=== PATIENT | female | born 1975 | race Caucasian/White ===

== ENCOUNTER 2017-12-12 07:55 | Inpatient (IN) | payer MEDICARE, MEDICAID ==
[~2017-12-12] VITALS: Ht 152.4 cm; Wt 55.6 kg
[2017-12-12] MEDS ORDERED: PERCT10 PO (07:59)
[2017-12-12 08:29] LABS: BASOPHILS % (AUTO) 0.9 % (0.0-2.0); EOSINOPHILS % (AUTO) 2.3 % (1.0-6.0); HEMATOCRIT 38.5 % (36-46); HEMOGLOBIN 13.2 g/dL (12.0-16.0); LYMPHOCYTES # (AUTO) 2.9 K/uL (1.0-4.8); LYMPHOCYTES % (AUTO) 33.6 % (22.0-44.0); MEAN CORPUSCULAR HEMOGLOBIN 32.7 pg (26.0-34.0); MEAN CORPUSCULAR HGB CONC 34.4 G/dL (31.0-37.0); MEAN CORPUSCULAR VOLUME 95 fL (80-100); MONOCYTES # (AUTO) 0.7 K/uL (0.1-1.0); MONOCYTES % (AUTO) 8.5 % (2.0-9.0); NEUTROPHILS # (AUTO) 4.8 K/uL (1.8-7.7); NEUTROPHILS % (AUTO) 54.7 % (40.0-70.0); PLATELET COUNT (AUTO) 366 K/uL (150-450); RED BLOOD CELL COUNT(AUTO) 4.05 MIL/uL (4.00-5.20); RED CELL DISTRIBUTION WIDTH 13.7 % (11.5-14.5)
[2017-12-12 08:46] LABS: ALANINE AMINOTRANSFERASE 30 U/L (12-78); ALBUMIN 3.8 g/dL (3.4-5.0); ALKALINE PHOSPHATASE 64 U/L (46-116); ANION GAP 10 mmol/L (8-16); ASPARTATE AMINOTRANSFERASE 23 U/L (15-37); BILIRUBIN,TOTAL 0.7 mg/dL (0.1-1.0); CALCIUM, TOTAL 9.1 mg/dL (8.8-10.5); CARBON DIOXIDE 29 mmol/L (22-29); CHLORIDE 100 mmol/L (98-107); CREATININE 0.82 mg/dL (0.60-1.30); GLOMERULAR FILTR. RATE CALC > 60 mL/min (>60); GLUCOSE,RANDOM 87 mg/dL (70-110); SODIUM SERUM 139 mmol/L (136-145); TOTAL PROTEIN, SERUM 7.2 g/dL (6.4-8.2); UREA NITROGEN, BLOOD 16 mg/dL (7-18)
[2017-12-12 08:48] LABS: POTASSIUM 2.8 mmol/L (3.5-5.1)
[2017-12-12 09:12] LABS: AMPHET/METH SCREEN,URINE POSITIVE (NEGATIVE); BARBITURATE SCREEN, URINE NEGATIVE (NEGATIVE); BENZODIAZEPINES SCREEN,URINE NEGATIVE (NEGATIVE); CANNABINOID SCREEN,URINE NEGATIVE (NEGATIVE); COCAINE SCREEN,URINE NEGATIVE (NEGATIVE); METHADONE SCREEN, URINE NEGATIVE (NEGATIVE); OPIATE SCREEN,URINE POSITIVE (NEGATIVE); PHENCYCLIDINE SCREEN,URINE NEGATIVE (NEGATIVE)
[2017-12-12] MEDS ORDERED: LORazepam 1 MG TABLET PO ONE (09:15)
[2017-12-12] MEDS ORDERED: POTASSIUM CHLORIDE 20 MEQ ER TABLET PO ONE ×2 (09:15→18:00)
[2017-12-12] MEDS ORDERED: NICOTINE 21 MG/24 HOUR PATCH TD ONE (12:00)
[2017-12-12] MEDS ORDERED: HALOPERIDOL LACTATE 5 MG/ML VIAL IM ONE (13:30)
[2017-12-12] MEDS ORDERED: DiphenhydrAMINE HCL 50 MG/ML VIAL IM ONE (13:30)
[2017-12-12] MEDS ORDERED: LORazepam 2 MG/ML VIAL IM ONE (13:30)
[2017-12-12 17:03] VITALS: BP 105/75
[2017-12-12] MEDS: QUEtiapine FUMARATE 25 MG TABLET PO SCH (17:23)
[2017-12-12] MEDS ORDERED: IBUPROFEN 400 MG TABLET PO PRN (18:00)
[2017-12-12] MEDS ORDERED: MAG HYDROX/AL HYDROX/SIMETH ES 30 ML SUSPENSION UDCUP PO PRN (18:00)
[2017-12-12] MEDS ORDERED: PETROLATUM,WHITE 71 GM JELLY TP PRN (18:00)
[2017-12-12] MEDS ORDERED: MAGNESIUM HYDROXIDE SUSPENSION 30 ML UDCUP PO PRN (18:00)
[2017-12-12] MEDS ORDERED: LOPERAMIDE HCL 2 MG CAPSULE PO PRN (18:00)
[2017-12-12] MEDS ORDERED: DOCUSATE SODIUM 100 MG CAPSULE PO PRN (18:00)
[2017-12-12] MEDS ORDERED: ACETAMINOPHEN 325 MG TABLET PO PRN (18:00)
[2017-12-12] MEDS ORDERED: ONDANSETRON HCL 4 MG TABLET PO PRN (18:00)
[2017-12-12] MEDS ORDERED: ALBUTEROL SULFATE HFA 90 MCG/PUFF 8 GM INHALER IH PRN (18:00)
[2017-12-12] MEDS ORDERED: CloNIDine HCL 0.1 MG TABLET PO PRN (18:00)
[2017-12-13 06:33] VITALS: BP 101/69
[2017-12-13] MEDS: LORazepam 2 MG TABLET PO PRN ×2 (07:27→18:33)
[2017-12-13 08:17] LABS: BASOPHILS % (AUTO) 1.4 % (0.0-2.0); EOSINOPHILS % (AUTO) 4.9 % (1.0-6.0); HEMATOCRIT 40.6 % (36-46); LYMPHOCYTES # (AUTO) 3.5 K/uL (1.0-4.8); LYMPHOCYTES % (AUTO) 47.7 % (22.0-44.0); MEAN CORPUSCULAR HEMOGLOBIN 33.2 pg (26.0-34.0); MEAN CORPUSCULAR HGB CONC 34.5 G/dL (31.0-37.0); MEAN CORPUSCULAR VOLUME 96 fL (80-100); MONOCYTES # (AUTO) 0.6 K/uL (0.1-1.0); MONOCYTES % (AUTO) 8.8 % (2.0-9.0); NEUTROPHILS # (AUTO) 2.7 K/uL (1.8-7.7); NEUTROPHILS % (AUTO) 37.2 % (40.0-70.0); PLATELET COUNT (AUTO) 398 K/uL (150-450); RED BLOOD CELL COUNT(AUTO) 4.22 MIL/uL (4.00-5.20); RED CELL DISTRIBUTION WIDTH 14.1 % (11.5-14.5)
[2017-12-13 08:39] VITALS: BP 108/50
[2017-12-13 08:45] LABS: ALANINE AMINOTRANSFERASE 29 U/L (12-78); ALBUMIN 3.7 g/dL (3.4-5.0); ALKALINE PHOSPHATASE 62 U/L (46-116); ANION GAP 9 mmol/L (8-16); ASPARTATE AMINOTRANSFERASE 26 U/L (15-37); BILIRUBIN,TOTAL 0.6 mg/dL (0.1-1.0); CARBON DIOXIDE 27 mmol/L (22-29); CHLORIDE 100 mmol/L (98-107); CHOLESTEROL 199 mg/dL (131-200); CREATININE 0.78 mg/dL (0.60-1.30); GLOMERULAR FILTR. RATE CALC > 60 mL/min (>60); GLUCOSE,RANDOM 90 mg/dL (70-110); HDL CHOLESTEROL 66 mg/dL (40-60); LDL CHOL (CALC.) 117 mg/dL (0-130); POTASSIUM 3.5 mmol/L (3.5-5.1); SODIUM SERUM 136 mmol/L (136-145); THYROID STIMULATING HORMONE 1.15 uIU/mL (0.36-3.74); TOTAL PROTEIN, SERUM 7.2 g/dL (6.4-8.2); TRIGLYCERIDES 82 mg/dL (15-150); UREA NITROGEN, BLOOD 16 mg/dL (7-18)
[2017-12-13] MEDS: BuPROPion HCL XL 150 MG ER TABLET PO SCH (09:49)
[2017-12-13] MEDS: QUEtiapine FUMARATE 25 MG TABLET PO SCH ×2 (09:49→17:05)
[2017-12-13] MEDS: NICOTINE 14 MG/24 HOUR PATCH TD SCH (09:49)
[2017-12-13 16:06] VITALS: BP 109/67
[2017-12-13] MEDS: ZOLPIDEM TARTRATE 10 MG TABLET PO PRN (23:36)
[2017-12-14 00:06] VITALS: BP 107/60
[2017-12-14 03:30] VITALS: BP 108/62
[2017-12-14] MEDS: LORazepam 2 MG TABLET PO PRN ×3 (03:32→18:24)
[2017-12-14 08:28] VITALS: BP 100/59
[2017-12-14] MEDS: BuPROPion HCL XL 150 MG ER TABLET PO SCH (08:39)
[2017-12-14] MEDS: QUEtiapine FUMARATE 25 MG TABLET PO SCH ×2 (08:39→16:21)
[2017-12-14] MEDS: NICOTINE 14 MG/24 HOUR PATCH TD SCH (08:39)
[2017-12-14 16:13] VITALS: BP 114/63
[2017-12-14] MEDS: HALOPERIDOL 5 MG TABLET PO PRN (19:44)
[2017-12-15 00:25] VITALS: BP 102/64
[2017-12-15] MEDS: ZOLPIDEM TARTRATE 10 MG TABLET PO PRN ×2 (00:28→20:47)
[2017-12-15 05:05] VITALS: BP 104/61
[2017-12-15] MEDS: LORazepam 2 MG TABLET PO PRN ×3 (05:07→20:47)
[2017-12-15 08:23] VITALS: BP 102/58
[2017-12-15] MEDS: BuPROPion HCL XL 150 MG ER TABLET PO SCH (08:47)
[2017-12-15] MEDS: QUEtiapine FUMARATE 25 MG TABLET PO SCH ×2 (08:47→16:54)
[2017-12-15] MEDS: NICOTINE 14 MG/24 HOUR PATCH TD SCH (08:47)
[2017-12-15 16:02] VITALS: BP 109/60
[2017-12-15] MEDS: HALOPERIDOL 5 MG TABLET PO PRN (16:35)
[2017-12-16 04:15] VITALS: BP 106/66
[2017-12-16] MEDS: LORazepam 2 MG TABLET PO PRN ×2 (04:18→08:25)
[2017-12-16] MEDS: BuPROPion HCL XL 150 MG ER TABLET PO SCH (08:20)
[2017-12-16] MEDS: QUEtiapine FUMARATE 25 MG TABLET PO SCH (08:20)
[2017-12-16] MEDS: NICOTINE 14 MG/24 HOUR PATCH TD SCH (08:20)
[2017-12-16] MEDS: HALOPERIDOL 5 MG TABLET PO PRN (08:25)
[2017-12-16 08:38] VITALS: BP 102/49
[2017-12-16] MEDS ORDERED: QUET25TA PO (10:30)
[2017-12-16] MEDS ORDERED: BUPR-93 PO (10:47)
== END 2017-12-16 13:20 | disposition home or self-care (01) | DRG 885 ==
LOC: EMS 07:56 → B3A 15:08
PROVIDERS: ADMIT Psychiatry & Neurology Psychiatry; ATTEND Psychiatry & Neurology Psychiatry
DX: F25.0 Schizoaffective disorder, bipolar type (principal); R45.851 Suicidal ideations; F33.2 Major depressive disorder, recurrent severe without psychotic features; E87.6 Hypokalemia; F41.9 Anxiety disorder, unspecified; F60.3 Borderline personality disorder; I95.9 Hypotension, unspecified; F19.10 Other psychoactive substance abuse, uncomplicated; Z91.5 Personal history of self-harm; Z91.19 Patient's noncompliance with other medical treatment and regimen; Z59.0 Homelessness; Z88.8 Allergy status to other drugs, medicaments and biological substances
CPT/HCPCS: 83036; 84443; 96372; 99285; G0480; J1200; J1630; J2060